=== PATIENT | female | born 1985 | race Caucasian/White ===

== ENCOUNTER 2016-05-29 18:55 | Emergency (ER) | payer OTHER ==
[2016-05-29] MEDS ORDERED: NS 1,000 ML IV ONE ×2 (19:57→22:19)
[2016-05-29] MEDS ORDERED: ZOFRAN IV ONE (19:58)
--- NOTE | 2016-05-29 20:16 | PROVIDER DOCUMENTATION ---
HPI-General Adult - General Stated Complaint: FLU SX Time Seen by Provider: 05/29/16 19:45 Source: patient Allergies/Adverse Reactions: Patient Allergies Allergy/AdvReac Type Severity Reaction Status Date / Time codeine [Codeine] Allergy DIZZINESS Verified 02/06/12 21:42 Home Medications: Home Medication List Medication Instructions Recorded Confirmed Last Taken Type No Home Medications 05/29/16 05/29/16 Unknown History - History of Present Illness -Gen Adult Nature of Presenting Problems: 31 YOWF PRESENTS TO ED WITH C/O PT STATES SHE HAS N/V RUNNY NOSE, BODY ACHES, SORE THROAT, CONGESTION, DIARRHEA X 1 WEEK. Location of Pain/Injury: reports: generalized Pain Radiation: reports: no radiation Quality of Pain: reports: aching Severity: reports: moderate Onset/Duration: reports: 1 week ago Timing: reports: still present Context/Activities at Onset: reports: light activity Modifying Factors: improves with: nothing Associated Symptoms: reports: cough, diarrhea, muscle aches, sinus congestion/ drainage, nausea, vomiting Similar Symptoms Previously?: No Recently seen or treated by another doctor?: No Review of Systems - Adult - REVIEW OF SYSTEMS - ADULT Constitutional: denies: chills, fever Eyes: reports: no symptoms reported Ears, Nose, Mouth & Throat: reports: sinus problem Cardiovascular: denies: chest pain, palpitations, syncope Respiratory: reports: cough. denies: shortness of breath, wheezing Gastrointestinal: reports: abdominal pain, diarrhea, nausea, vomiting Genitourinary: reports: no symptoms reported Musculoskeletal: denies: back pain, neck pain Integumentary: reports: no symptoms reported Neurological: denies: dizziness/vertigo, headache/migraines, syncope Psychiatric: reports: no symptoms reported Endocrine: reports: no symptoms reported Hematologic/Lymphatic: reports: no symptoms reported Allergic/Immunologic: reports: no symptoms reported All Other Systems: Reviewed and Negative Past History - Adult - PAST MEDICAL HISTORY-ADULT Review of Records: reports: Nursing Assessment Review, Medications Reviewed - SOCIAL HISTORY Smoking: cigarettes, less than 1 pack/day Provider spent 3-5 mins advising pt. on dangers of tobacco.: Discussed manners to quit use, and f/u contacts for add'l counseling. Substance Use: denies Alcohol Use Frequency: never Living Situation: family Physical Exam-General - CONSTITUTIONAL General Appearance: alert, moderate distress - EYES Eyes: PERRL/EOMI, pink conjunctivae - HEAD, EARS, NOSE, MOUTH & THROAT HENMT: normocephalic/atraumatic, moist mucous membranes - NECK Neck: non-tender, full range of motion, supple - RESPIRATORY Respiratory: chest non-tender, lungs clear, normal breath sounds - CARDIOVASCULAR Cardiovascular: normal peripheral pulses, tachycardia - GASTROINTESTINAL (ABDOMEN) Abdominal Exam: normal bowel sounds, non tender, soft - LYMPHATIC Lymphatic: no adenopathy - MUSCULOSKELETAL Back Exam: normal inspection, no CVA tenderness, no vertebral tenderness Extremity: normal range of motion, non-tender - SKIN Integumentary: normal color, normal turgor, warm/dry - NEUROLOGIC Neurologic: grossly normal - PSYCHIATRIC Psych/Mental Status: oriented x 3 Progress - PLAN OF CARE/RESULTS Progress/Plan/Lab Results: Laboratory Tests 05/29/16 05/29/16 05/29/16 19:15 20:40 20:40 WBC 11.96 H RBC 6.08 H Hgb 16.6 H Hct 48.5 H MCV 79.8 L MCH 27.3 MCHC 34.2 RDW Std Deviation 14.9 H Plt Count 210 MPV 10.5 H Immature Gran % (Auto) 0.3 Neut % (Auto) 87.2 H Lymph % (Auto) 7.4 L [place] % (Auto) 4.3 Eos % (Auto) 0.5 Baso % (Auto) 0.3 Immature Gran # (Auto) 0.04 Neut # (Auto) 10.42 H Lymph # (Auto) 0.89 L [place] # (Auto) 0.52 Eos # (Auto) 0.06 Baso # (Auto) 0.03 Sodium 134 L Potassium 3.7 Chloride 103 Carbon Dioxide 12 L Anion Gap 19 BUN 8 Creatinine 0.8 Estimated GFR/1.73 m2 > 60 BUN/Creatinine Ratio 10 Glucose 139 H Calculated Osmolality 269 Calcium 10.1 Total Bilirubin 0.50 AST 23 ALT 24 Alkaline Phosphatase 113 H Total Protein 8.1 Albumin 4.6 Globulin 4.0 Albumin/Globulin Ratio 1.0 Serum , Qual Influenza A (Rapid) NEGATIVE Influenza B (Rapid) NEGATIVE Group A Strep Rapid 05/29/16 05/29/16 20:40 21:23 WBC RBC Hgb Hct MCV MCH MCHC RDW Std Deviation Plt Count MPV Immature Gran % (Auto) Neut % (Auto) Lymph % (Auto) [place] % (Auto) Eos % (Auto) Baso % (Auto) Immature Gran # (Auto) Neut # (Auto) Lymph # (Auto) [place] # (Auto) Eos # (Auto) Baso # (Auto) Sodium Potassium Chloride Carbon Dioxide Anion Gap BUN Creatinine Estimated GFR/1.73 m2 BUN/Creatinine Ratio Glucose Calculated Osmolality Calcium Total Bilirubin AST ALT Alkaline Phosphatase Total Protein Albumin Globulin Albumin/Globulin Ratio Serum , Qual NEGATIVE Influenza A (Rapid) Influenza B (Rapid) Group A Strep Rapid NEGATIVE Orders Category Date Time Status CBC WITH ELECTRONIC DIFF [HEME] Stat Lab 05/29/16 20:40 Completed CMP [COMPREHENSIVE METABOLIC PANEL] [CHEM] Stat Lab 05/29/16 20:[address] Stat Lab 05/29/16 21:23 Completed Flu [INFLUENZA SCREEN PL] Stat Lab 05/29/16 19:15 Completed HCG [ TEST-SERUM] [PREG] Stat Lab 05/29/16 20:40 Completed 0.9% Sodium Chloride Inj [Ns] 1,000 ml Med 05/29/16 19:57 Discontinued IV 999 mls/hr Ondansetron [Zofran] Med 05/29/16 19:58 Discontinued 4 mg IV NOW ONE Vital Signs - 24 hr 05/29/16 19:13 Temperature 98.6 F Pulse Rate 129 H Respiratory 18 Rate Blood Pressure 133/80 O2 Sat by Pulse 98 Oximetry Departure - Departure Time of Disposition Order: 22:10 DIAGNOSIS: Volume depletion Nausea & vomiting Qualifiers: Vomiting type: unspecified Vomiting Intractability: unspecified Qualified Code( s): R11.2 - Nausea with vomiting, unspecified Diarrhea Qualifiers: Diarrhea type: unspecified type Qualified Code(s): R19.7 - Diarrhea, unspecified Disposition: HOME 01 Certified Medical Emergency: Emergent Condition: Stable Additional Instructions: ED Follow Up Instructions: You have been treated by a care provider in the Emergency Department. These instructions are being provided to you so you can have an understanding of how to care for yourself upon discharge. Upon discharge from the Emergency Department, you are responsible for making arrangements for follow-up care by a physician of your choice. Take all prescribed medications as directed. Return to the Emergency Department immediately for any new or worsening symptoms. You may call the Physician Referral phone number at [phone] to obtain a list of Physicians who are taking new patients. Attestation - Scribe Verification/Attestation Scribe:: Kaden Waters Acting as Scribe for:: Otto Wild Scribe documention review:: This chart was documented by a scribe and accurately reflects the service the provider performed and the decisions made by the provider.
[2016-05-29 21:11] LABS: BASO% 0.3 % (0.0-0.8); EOS# 0.06 X1000 (0.0-0.7); EOS% 0.5 % (0.0-10.0); HEMATOCRIT 48.5 % (37.0-47.0); HEMOGLOBIN 16.6 g/dL (12.0-16.0); IMM GRAN# 0.04 X1000 (0.0-0.04); IMM GRAN% 0.3 % (0.0-0.5); LYMPH# 0.89 X1000 (1.2-3.4); LYMPH% 7.4 % (20.5-51.1); MANUAL DIFF NEEDED? NO; MCH 27.3 PG (27-31); MCHC 34.2 g/dL (33-37); MCV 79.8 FL (81-99); MONO# 0.52 X1000 (0.11-0.59); MONO% 4.3 % (1.7-9.3); MPV 10.5 FL (7.4-10.4); NEUT% 87.2 % (42.2-75.2); PLT 210 X1000 (130-400); RBC 6.08 XMIL (4.2-5.4)
[2016-05-29 21:19] LABS: AGAP 19; ALBUMIN 4.6 g/dL (3.5-5.0); ALKALINE PHOSPHATASE 113 U/L (32-104); BUN 8 mg/dL (8-22); CALCIUM 10.1 mg/dL (8.8-10.2); CHLORIDE 103 mmol/L (98-107); COSMO 269; GOT 23 U/L (10-30); GPT 24 U/L (10-36); POTASSIUM 3.7 mmol/L (3.5-5.1); SODIUM 134 mmol/L (136-145); TCO2 12 mmol/L (25-35); TOTAL PROTEIN 8.1 g/dL (6.3-8.3)
[2016-05-30 00:11] VITALS: BP 112/79
== END 2016-05-30 00:18 | disposition home or self-care (01) ==
LOC: P.ED 18:55
DX: E86.9 Volume depletion, unspecified (principal); R11.2 Nausea with vomiting, unspecified; R19.7 Diarrhea, unspecified; R09.89 Other specified symptoms and signs involving the circulatory and respiratory systems; M79.1 Myalgia; J02.9 Acute pharyngitis, unspecified; R09.81 Nasal congestion; R05 Cough; R10.9 Unspecified abdominal pain; R00.0 Tachycardia, unspecified; F17.210 Nicotine dependence, cigarettes, uncomplicated; Z71.6 Tobacco abuse counseling
CPT/HCPCS: 80053; 84703; 85025; 87081; 87430; 87804; 96361; 96374; J2405; J7030